=== PATIENT | female | born 1955 | race Caucasian/White ===

== ENCOUNTER 2017-04-06 17:54 | Emergency (ER) | payer BC ==
--- NOTE | 2017-04-06 20:18 | RAD ---
HISTORY: Cough, fever COMPARISONS: None VIEWS: 4: Frontal dual-energy and lateral views of the chest. FINDINGS: CARDIOMEDIASTINAL SILHOUETTE: The cardiomediastinal silhouette is normal. KENYA: The kenya are normal. PLEURA: The costophrenic angles are sharp. No pleural abnormalities are noted. LUNG PARENCHYMA: The lungs are clear. ABDOMEN: The upper abdomen is clear. There is no subphrenic gas. BONES AND SOFT TISSUES: No bone or soft tissue abnormalities are noted. OTHER: None. IMPRESSION: NO ACTIVE CARDIOPULMONARY DISEASE.
[2017-04-06 20:39] VITALS: BP 170/78
[2017-04-06] MEDS ORDERED: Amoxicillin/Clavulanate TAB* 875 MG PO ONE (20:39)
--- NOTE | 2017-04-16 05:32 | UC ---
Nivia Toribio Nilda, scribed for Garrick Wilkerson MD on 04/06/17 at 1948 . Throat Pain/Nasal Jad HPI - HPI Summary HPI Summary: This patient is a 61 year old F [place] [facility] [place] daughter with a chief complaint of constant severe sore throat for the past 2 days. The patient rates the aching pain 8/10 in severity. Symptoms aggravated and alleviated by nothing including OTC medications. Daughter reports body aches, nasal congestion, bilat hearing loss, swollen and painful neck glands, chills, and cough. She denies fever. Daughter states positive recent sick contacts with grandchildren a few weeks ago. Pt is non-Finnish speaking and daughter served as member service specialist. - History of Current Complaint Chief Complaint: UCGeneralIllness Stated Complaint: ACHES, AND SORE THROAT Time Seen by Provider: 04/06/17 19:17 Hx Obtained From: Family/Box Spring Maker - daughter Onset/Duration: Sudden Onset, Still Present Severity: Severe Pain Intensity: 8 Pain Scale Used: 0-10 Numeric Associated Signs & Symptoms: Positive: Other - myalgia - Allergies/Home Medications Allergies/Adverse Reactions: Allergies Allergy/AdvReac Type Severity Reaction Status Date / Time No Known Allergies Allergy Verified 04/06/17 18:14 Home Medications: Home Medications Atorvastatin* [Lipitor 20 MG*] 20 mg PO DAILY 04/06/17 [History Confirmed ] Meloxicam [Mobic] 15 mg PO DAILY 04/06/17 [History Confirmed 04/06/17] Pantoprazole Sodium 20 mg PO DAILY 04/06/17 [History Confirmed 04/06/17] PMH/Surg Hx/FS Hx/Imm Hx - Additional Past Medical History Additional PMH: arthritis Endocrine History: Other Other Endocrine History: HLD - Surgical History Surgical History: None - Family History Known Family History: Positive: None - reviewed and noncontributory - Social History Alcohol Use: None Substance Use Type: None Smoking Status (MU): Never Smoked Tobacco Review of Systems Constitutional: Chills, Other - negative fever ENT: Sore Throat, Sinus Congestion, Other - bilat hearing loss Respiratory: Cough Musculoskeletal: Myalgia, Other: - painful and swollen neck glands All Other Systems Reviewed And Are Negative: Yes Physical Exam Triage Information Reviewed: Yes Vital Signs: Initial Vital Signs Temp 98.5 F 04/06/17 18:09 Pulse 81 04/06/17 18:09 Resp 19 04/06/17 18:09 BP 171/84 04/06/17 18:09 Pulse Ox 100 04/06/17 18:09 Vital Signs Reviewed: Yes - Additional Comments Appearance: Well-appearing, Well-nourished Skin: Warm Eyes: Normal ENT: positive anterior cervical lymphadenopathy, tonsils not well-visualized on exam, cerumen impaction in right ear, moderate fluid behind the left TM. Neck: Supple, nontender Respiratory: Clear to auscultation Cardiovascular: Normal S1, S2. No murmurs. Normal distal pulses in tibial and radial bilaterally. Abdomen: Soft, nontender Musculoskeletal: Normal, Strength/ROM Intact Neurological: Normal, A&Ox3 Psychiatric: Normal General: No acute distress Diagnostics - Radiology CXR Radiology Interpretation Completed By: Radiologist - CXR, per radiologist, reveals no active cardiopulmonary disease. Dr. Wilkerson has reviewed this radiology report. Throat Pain/Nasal Course/Dx - Course Assessment/Plan: This patient is a 61 year old F [place] [facility] [place] by daughter with a chief complaint of constant severe sore throat for the past 2 days. The patient rates the aching pain 8/10 in severity. Symptoms aggravated and alleviated by nothing including OTC medications. Daughter reports body aches, nasal congestion, bilat hearing loss, swollen and painful neck glands, chills, and cough. She denies fever. Daughter states positive recent sick contacts with grandchildren a few weeks ago. Pt is non- Finnish speaking and daughter served as member service specialist. Influenza A Negative. Influenza B Negative. Rapid strep negative. CXR, per radiologist, reveals no active cardiopulmonary disease. Dr. Wilkerson has reviewed this radiology report. Pt started empirically on Augmentin for sinusitis given history and physical. Instructed to follow up with PCP. No respiratory distress. Pt and daughter agrees to and understands D/C instructions. - Differential Dx/Diagnosis Provider Diagnoses: sinusitis Discharge - Discharge Plan Condition: Stable Disposition: HOME Prescriptions: Amoxicillin/Clavulanate TAB* [Augmentin TAB 875*] 875 mg PO BID #14 tab Patient Education Materials: Sinusitis (ED) Referrals: Juan David Brown MD [Medical Doctor] - No Primary Care Phys,NOPCP [Primary Care Provider] - Additional Instructions: PLEASE TAKE MEDICATIONS DIRECTED PLEASE KEEP YOURSELF WELL HYDRATED WITH SMALL AMOUNTS OF FLUID MORE FREQUENTLY THROUGHOUT THE DAY PLEASE SEEK MEDICAL ATTENTION IMMEDIATELY IF YOU HAVE ANY WORSENING OR CONCERNING SYMPTOMS PLEASE MAKE AN APPOINTMENT TO BE SEEN BY YOUR PRIMARY CARE DOCTOR WITHIN 1 WEEK The documentation as recorded by the Nivia bullock Nilda accurately reflects the service I personally performed and the decisions made by me, Garrick Wilkerson MD.
== END 2017-04-06 20:50 | disposition home or self-care (01) ==
LOC: UCEAST 17:54
DX: J32.9 Chronic sinusitis, unspecified (principal); M79.1 Myalgia; R05 Cough; R50.9 Fever, unspecified; H61.21 Impacted cerumen, right ear
CPT/HCPCS: 71046; 87502; 87651; 99202; A9270-GY; G0463

== ENCOUNTER 2018-04-18 07:06 | Emergency (ER) | payer BC ==
[2018-04-18 07:38] VITALS: BP 134/72
--- NOTE | 2018-04-18 09:01 | UC ---
Throat Pain/Nasal Jad HPI - HPI Summary HPI Summary: 62 yo female presents accompanied by daughter. Pt is from [facility] and does not speak [place] citizen, therefore the history and interview is provided by the daughter who is translating today. She tells me that for the last 1.5 weeks pt has had sinus pain/pressure/congestion, headache, and b/l ear pain. Has been feeling feverish, but has not taken her temperature. Has not been taking anything OTC for her symptoms. Denies sick contacts, cough, SOB, rash, n/v. - History of Current Complaint Chief Complaint: UCRespiratory Stated Complaint: COLD ISSUES Time Seen by Provider: 04/18/18 08:42 Hx Obtained From: Family/Armature Straightener Hx From Patient Unobtainable Due To: Other - non-[place] citizen speaking Hx Last Menstrual Period: menapause Onset/Duration: Gradual Onset Pain Intensity: 0 - Allergies/Home Medications Allergies/Adverse Reactions: Allergies Allergy/AdvReac Type Severity Reaction Status Date / Time No Known Allergies Allergy Verified 04/06/17 18:14 PMH/Surg Hx/FS Hx/Imm Hx Endocrine History: Dyslipidemia GI/ History: Gastroesophageal Reflux - Surgical History Surgical History: Yes Surgery Procedure, Year, and Place: left arm nerve surgary - Family History Known Family History: Positive: Unknown - Social History Lives: With Family Alcohol Use: None Substance Use Type: None Smoking Status (MU): Never Smoked Tobacco Review of Systems All Other Systems Reviewed And Are Negative: Yes Constitutional: Positive: Fever Skin: Positive: Negative Eyes: Positive: Negative ENT: Positive: Ear Ache, Nasal Discharge, Sinus Congestion, Sinus Pain/ Tenderness Respiratory: Positive: Negative Cardiovascular: Positive: Negative Gastrointestinal: Positive: Negative Neurovascular: Positive: Negative Neurological: Positive: Negative Psychological: Positive: Negative Physical Exam - Summary Physical Exam Summary: GENERAL: NAD. WDWN. No pain distress. SKIN: No rashes, sores, lesions, or open wounds. HEENT: Head: AT/NC Eyes: EOM intact. Conjunctiva clear without inflammation or discharge. Ears: Hearing grossly normal. B/L TM with moderate erythema and bulging. No canal edema or drainage. TMs intact Nose: Nasal mucosa moderately swollen and erythematous with yellow discharge. TTP maxillary and frontal sinus. Positive post nasal drip Throat: Posterior oropharynx without exudates, erythema, or tonsillar enlargement. Uvula midline. NECK: Supple. Nontender. No lymphadenopathy. CHEST: CTAB. No r/r/w. No accessory muscle use. Breathing comfortably and in no distress. CV: RRR. Without m/r/g. Pulses intact. NEURO: Alert. PSYCH: Age appropriate behavior. Triage Information Reviewed: Yes Vital Signs: Initial Vital Signs Temp 99.2 F 04/18/18 07:31 Pulse 94 04/18/18 07:31 Resp 24 04/18/18 07:31 BP 134/72 04/18/18 07:31 Pulse Ox 96 04/18/18 07:31 Vital Signs Reviewed: Yes Throat Pain/Nasal Course/Dx - Course Course Of Treatment: Sinusitis. B/L otitis media. Will start with augmentin and advised to take tylenol and mucinex OTC for fever/discomfort. - Differential Dx/Diagnosis Provider Diagnosis: Sinusitis, Bilateral otitis media Discharge - Sign-Out/Discharge Documenting (check all that apply): Patient Departure All imaging exams completed and their final reports reviewed: No Studies - Discharge Plan Condition: Stable Disposition: HOME Prescriptions: Amoxicillin/Clavulanate TAB* [Augmentin TAB 875*] 875 mg PO BID #20 tab Patient Education Materials: Sinusitis (ED), Ear Infection (ED) Referrals: Anupama Lewis MD [Primary Care Provider] - Additional Instructions: If you develop a fever, shortness of breath, chest pain, new or worsening symptoms - please call your PCP or go to the ED. May take tylenol as directed for fever and discomfort - Billing Disposition and Condition Condition: STABLE Disposition: Home - Attestation Statements Provider Attestation: Per institutional requirements, I have reviewed the chart, however, I was not consulted specifically or made aware of this patient by the midlevel provider. I did not personally evaluate, interact with , or disposition this patient.
== END 2018-04-18 09:13 | disposition home or self-care (01) ==
LOC: UCEAST 07:06
DX: J32.9 Chronic sinusitis, unspecified (principal); H66.93 Otitis media, unspecified, bilateral
CPT/HCPCS: 99211; G0463